=== PATIENT | female | born 1955 | race Caucasian/White ===

== ENCOUNTER → 2022-01-16 | Outpatient (CLI) | payer OTHER ==
[~2022-01-16] MED LIST: ACYCLOVIR400 MG PO; BREO ELLIPTA 21 EACH INH; CALCIUM, MAG, ZINC PO; CELEXA40 MG PO; MOBIC15 MG PO; PROVENTIL HFA6.7 GM INH; SINGULAIR10 MG PO; TRICOR 145 MG145 MG PO; TYLENOL EXTRA500 MG PO; VEGETABLE SUPPLEMENT PO; VITAMIN D350 MC3 PO; XANAX0.25 MG PO; XYZAL5 MG PO; [UNRECOGNIZED DRUG - OTHER] PO
[2022-01-16 11:10] LABS: HEMOGLOBIN 12.6 gm/dl (12.3-15.3); RED BLOOD COUNT 4.3 M/UL (4.00-5.10); WHITE BLOOD COUNT 5.2 K/UL (4.5-11.0)
[2022-01-16 11:36] LABS: BUN/CREATININE RATIO 32 (0-10)
== END ==
LOC: OPSV2 10:00 → EDSTATUS 10:00 → OPSV2 10:28
PROVIDERS: Orthopaedic Surgery
DX: Z01.818 Encounter for other preprocedural examination (principal); M17.12 Unilateral primary osteoarthritis, left knee
CPT/HCPCS: 36415; 71046; 80048; 85027; 93005